=== PATIENT | male | born 1940 | race American Indian/Alaskan Native ===

== ENCOUNTER 2016-12-07 11:22 | Outpatient (CLI) | payer MEDICARE ==
[2016-12-07 11:48] LABS: Blood Urea Nitrogen 21 mg/dL (9-20)
[2016-12-07] MEDS ORDERED: NACL ONE (12:35)
--- NOTE | 2016-12-07 14:52 | Cat Scan Report ---
CT ABDOMEN AND PELVIS WITHOUT AND WITH CONTRAST INDICATION: Portal vein thrombosis. COMPARISON: None similar at this institution. FINDINGS: Abdomen and pelvis CT performed before and after intravenous administration of 100 cc of Omnipaque 300. LUNG BASES: Mild emphysematous changes, greatest noted in the right lower lobe superiorly. Streak artifact from pacemaker leads. Normal heart size. No effusions. Nonspecific distal esophageal wall prominence/thickening, not excluded for gastroesophageal reflux and/or hiatal hernia, amongst others. ABDOMEN: Precontrast images demonstrate no radiopaque gallstones. Tiny nonobstructing bilateral renal calcifications. Postcontrast images demonstrate no suspicious hypervascular lesions. Indeterminate 7 mm left hepatic hypodensity superiorly, axial image 23, series 4. Patent main and right portal vein, though left portal branch is occluded. Patent hepatic veins. Otherwise unremarkable liver, spleen, gallbladder, pancreas, adrenals, nonaneurysmal abdominal aorta with a few atherosclerotic calcifications, IVC and kidneys. No ascites or size significant adenopathy. Nonopacified GI tract evaluation limited, though grossly nonobstructive. Normal appendix. Mild to moderate colonic stool/possible constipation. PELVIS: Mildly enlarged prostate, though possibly age-appropriate, creates an impression at the bladder base that may be correlated for clinically and with PSA. Tiny prostatic calcifications. Grossly unremarkable remainder urinary bladder and seminal vesicles. Rectosigmoid stool. No free fluid or significant adenopathy. Few right scrotal/lower inguinal canal postsurgical changes. Multilevel spinal degenerative spurring. Bilateral SI joint degenerative spurring as well, left more than right. Possible osteopenia. Mild hip degenerative changes, more so on the right. CONCLUSION: 1. Left portal vein thrombosis, possibly chronic. Please correlate. Patent remainder veins. 2. Various other incidental findings, as above. Thank you for the opportunity to participate in this patient's care.
== END 2016-12-07 11:23 | disposition home or self-care (01) ==
LOC: CT 11:22
PROVIDERS: ATTEND Radiology Diagnostic Radiology
DX: I81 Portal vein thrombosis (principal); N40.0 Benign prostatic hyperplasia without lower urinary tract symptoms; N42.89 Other specified disorders of prostate; N28.89 Other specified disorders of kidney and ureter; I70.0 Atherosclerosis of aorta; M16.0 Bilateral primary osteoarthritis of hip; Z95.0 Presence of cardiac pacemaker
CPT/HCPCS: 36415; 74178; 82565; 84520; Q9967